=== PATIENT | female | born 1985 ===

== ENCOUNTER 2018-01-25 10:13 | Outpatient (CLI) | payer OTHER ==
[~2018-01-25] VITALS: Ht 149.9 cm; Wt 77.1 kg
== END 2018-01-25 10:30 | disposition home or self-care (01) ==
LOC: OFIC 805 10:13
DX: J30.89 Other allergic rhinitis (principal); J34.89 Other specified disorders of nose and nasal sinuses; R09.82 Postnasal drip; G47.63 Sleep related bruxism

== ENCOUNTER 2018-03-16 10:02 | Outpatient (CLI) | payer OTHER ==
[~2018-03-16] VITALS: Ht 121.9 cm; Wt 77.1 kg
== END 2018-03-16 10:15 | disposition home or self-care (01) ==
LOC: OFIC 805 10:02
DX: J00 Acute nasopharyngitis [common cold] (principal); G47.63 Sleep related bruxism

== ENCOUNTER 2018-04-26 11:15 | Outpatient (CLI) | payer OTHER ==
[~2018-04-26] VITALS: Ht 121.9 cm; Wt 77.1 kg
== END 2018-04-26 11:30 | disposition home or self-care (01) ==
LOC: OFIC 805 11:15
DX: J30.89 Other allergic rhinitis (principal); F45.8 Other somatoform disorders; G96.0 Cerebrospinal fluid leak

== ENCOUNTER 2018-12-01 09:11 | Outpatient (CLI) | payer OTHER ==
[~2018-12-01] VITALS: Ht 152.4 cm; Wt 76.2 kg
== END 2018-12-01 09:30 | disposition home or self-care (01) ==
LOC: OFIC 805 09:11
DX: J30.89 Other allergic rhinitis (principal); J31.0 Chronic rhinitis; J34.89 Other specified disorders of nose and nasal sinuses

== ENCOUNTER 2024-04-20 09:55 | Outpatient (CLI) | payer OTHER | END 2024-04-20 10:01 | disposition home or self-care (01) | LOC: SONOGRAMA 09:55 | PROVIDERS: ATTEND Obstetrics & Gynecology Maternal & Fetal Medicine | DX: N63.20 Unspecified lump in the left breast, unspecified quadrant (principal) ==